=== PATIENT | male | born 1985 | race Caucasian/White ===

== ENCOUNTER 2018-04-09 12:50 | Emergency (ER) | payer MEDICAID ==
[~2018-04-09] VITALS: Ht 172.7 cm; Wt 88.6 kg
[2018-04-09 13:09] VITALS: BP 163/88
[2018-04-09] MEDS ORDERED: LIDOCAINE-MPF 1%, 5ML INFIL ONE (14:00)
[2018-04-09] MEDS ORDERED: HYDROcodone/APAP 5/325 TABLET ONE (14:21)
[2018-04-09] MEDS ORDERED: LIDOCAINE-MPF 1%, 2ML ONE (14:22)
[2018-04-09] MEDS ORDERED: HYDROcodone/APAP 5/325 TABLET PO ONE (14:30)
== END 2018-04-09 14:51 | disposition home or self-care (01) ==
LOC: ED 13:30
DX: L02.211 Cutaneous abscess of abdominal wall (principal); I10 Essential (primary) hypertension; I11.0 Hypertensive heart disease with heart failure; R50.9 Fever, unspecified
CPT/HCPCS: 10060; 99283

== ENCOUNTER 2018-04-12 17:26 | Emergency (ER) | payer MEDICAID ==
[~2018-04-12] VITALS: Ht 175.3 cm; Wt 87.7 kg
[2018-04-12 17:41] VITALS: BP 131/83
[2018-04-12] MEDS ORDERED: LISI-167 PO (18:58)
== END 2018-04-12 19:20 | disposition home or self-care (01) ==
LOC: ED 18:40
DX: L02.211 Cutaneous abscess of abdominal wall (principal)
CPT/HCPCS: 99283